=== PATIENT | female | born 1990 | race Caucasian/White ===

== ENCOUNTER 2016-10-19 15:19 | Emergency (ER) | payer MEDICAID, OTHER, SELFPAY ==
[~2016-10-19] VITALS: Ht 152.4 cm; Wt 68.6 kg
[2016-10-19 15:29] VITALS: BP 116/73
== END 2016-10-19 17:08 | disposition home or self-care (01) ==
LOC: ED 16:19
DX: S83.92XA Sprain of unspecified site of left knee, initial encounter (principal); X58.XXXA Exposure to other specified factors, initial encounter; Y93.89 Activity, other specified; Y92.89 Other specified places as the place of occurrence of the external cause; Y99.9 Unspecified external cause status
CPT/HCPCS: 29505; 99284

== ENCOUNTER 2017-03-15 12:46 | Emergency (ER) | payer OTHER ==
[~2017-03-15] VITALS: Ht 152.4 cm; Wt 68.2 kg
[2017-03-15 12:47] VITALS: BP 129/83
== END 2017-03-15 13:36 | disposition home or self-care (01) ==
LOC: ED 13:15
DX: H66.002 Acute suppurative otitis media without spontaneous rupture of ear drum, left ear (principal); H60.92 Unspecified otitis externa, left ear; E03.9 Hypothyroidism, unspecified
CPT/HCPCS: 99283